=== PATIENT | male | born 1985 | race Two or more races ===

== ENCOUNTER 2022-09-10 00:19 | Emergency (ER) | payer MEDICAID ==
--- NOTE | 2022-09-10 00:43 | NUR ---
PER EMS, PT WALKED OUT WHILE AWAITING TO BE TRIAGED.
== END 2022-09-10 00:45 | disposition left against medical advice (07) ==
LOC: ER 00:24
DX: Z53.21 Procedure and treatment not carried out due to patient leaving prior to being seen by health care provider (principal)